=== PATIENT | female | born 1965 | race African-American/Black ===

== ENCOUNTER 2022-03-08 13:22 | Emergency (ER) | payer SELFPAY ==
[~2022-03-08] VITALS: Ht 160 cm; Wt 128.5 kg
[2022-03-08 13:42] VITALS: BP 126/84
--- NOTE | 2022-03-08 13:45 | NUR ---
57 Y/O FEMALE PRESENTS TO ED FOR MEDICATION REFILL. PT JUST MOVED HERE FROM [place] AND FORGOT HER MEDICATION OF HYDROCHLOROTHIAZIDE AND HAS INCREASED SWELLING TO BILATERAL FEET/ANKLE. PT REPORTS THIS OCCURS IF SHE DOESNT TAKE HER MEDS. DENIES CP/SOB/ ANY PAIN. +2 PITTING EDEMA TO BILATERAL ANKLES/FEET. PT A/O X4 WITH EVEN AND UNLABORED RESPIRATIONS, NO SIGNS OF ANY DISTRESS. PMH:CHF, HTN, COPD MEDS:HYDROCHLOROTHIAZIDE NKDA
--- NOTE | 2022-03-08 13:51 | NUR ---
Patient ambulated to bed 5.
--- NOTE | 2022-03-08 13:51 | NUR ---
PT AMBULATED TO BED 05.
--- NOTE | 2022-03-08 14:46 | NUR ---
SANDI Adorno evaluating patient at bedside.
--- NOTE | 2022-03-08 14:53 | NUR ---
57 y/o female bib self with c/o medication refill for her hydrochlorothiazide. Patient just moved from [place] to [place]. Patient left her medication at home. Patient is having increased swelling to her feet due to not taking medication. Patient denies pain or SOB. Medical History:CHF, HTN, COPD NKDA
--- NOTE | 2022-03-08 15:03 | NUR ---
Radiology at bedside
--- NOTE | 2022-03-08 15:14 | NUR ---
Lab at bedside.
[2022-03-08 15:33] LABS: BASOPHILS % (AUTO) 0.4 % (0.0-2.0); EOSINOPHILS # (AUTO) 0.2 K/uL (0-0.4); EOSINOPHILS % (AUTO) 2.2 % (0.0-4.0); HEMATOCRIT 41.8 % (36-48); HEMOGLOBIN 13.4 g/dL (12.0-16.0); LYMPHOCYTES # (AUTO) 2.4 K/uL (2.5-16.5); LYMPHOCYTES % (AUTO) 32.1 % (20.5-51.1); MEAN CORPUSCULAR HEMOGLOBIN 28 pg (27-31); MEAN CORPUSCULAR HGB CONC 32 g/dL (33-37); MEAN CORPUSCULAR VOLUME 87.6 fL (80-94); MONOCYTES # (AUTO) 1.1 K/uL (0.8-1.0); MONOCYTES % (AUTO) 14.4 % (1.7-9.3); NEUTROPHILS # (AUTO) 3.8 K/uL (1.8-7.7); NEUTROPHILS % (AUTO) 50.9 % (42.2-75.2); PLATELET COUNT (AUTO) 265 K/uL (140-450); RED BLOOD CELL COUNT(AUTO) 4.77 MIL/uL (4.20-5.40); RED CELL DISTRIBUTION WIDTH 15.3 % (11.6-13.7); WHITE BLOOD COUNT (AUTO) 7.5 K/uL (4.8-10.8)
[2022-03-08 16:04] LABS: ALBUMIN 3.3 g/dL (3.4-5.0); ANION GAP 9.4 (8-16); CREATININE 0.9 mg/dL (0.6-1.3); POTASSIUM 4.4 mmol/L (3.5-5.1); TOTAL BILIRUBIN 0.2 mg/dL (0.0-1.0)
--- NOTE | 2022-03-08 16:09 | NUR ---
Patient was offered sandwich and juice.
[2022-03-08 16:40] VITALS: BP 139/82
--- NOTE | 2022-03-08 16:40 | NUR ---
Patient discharged with v/s stable. Written and verbal after care instructions given and explained. Patient verbalized understanding. Ambulatory with steady gait. All questions addressed prior to discharge. Advised to follow up with PMD.
== END 2022-03-08 16:40 | disposition home or self-care (01) ==
LOC: MED 13:22
DX: M77.32 Calcaneal spur, left foot (principal); M77.31 Calcaneal spur, right foot; I25.10 Atherosclerotic heart disease of native coronary artery without angina pectoris; I10 Essential (primary) hypertension; J44.9 Chronic obstructive pulmonary disease, unspecified
CPT/HCPCS: 36415; 71045; 73610; 73630; 80053; 83880; 84484; 85025; 85379; 93005; 99285; Q0092